=== PATIENT | male | born 1990 | race Caucasian/White ===

== ENCOUNTER 2018-04-18 21:45 | Emergency (ER) | payer OTHER, SELFPAY ==
[2018-04-18 21:48] VITALS: BP 126/70; PULSE 73; RESP 16; TEMP 37.4; O2SAT 100; BMI 20.2
[2018-04-18 21:59] VITALS: RESP 16
--- NOTE | 2018-04-18 22:06 | ED.DCSUM_ITS ---
- ER Visit Summary Date of Service: 04/18/18 Chief Complaint: Left knee pain History of Present Illness: The patient is a 27 M who was at work tonight when he stepped backwards quickly to avoid a falling palate. He hit his right leg against something and fell backwards, twisting his left knee. He now reports increased pain with bending his left knee or with weightbearing. Patient does report a previously problem with either his left or right knee, he does not remember which. He states that he was placed in a brace for a while but does not believe he ever required surgery. Physical Examination: Vital signs unremarkable. Patient sitting upright in bed no acute distress. Lower exam examination is significant for mild tenderness along the medial lateral joint lines of the left knee. There is no joint laxity on testing. Strong distal pulses are noted. No edema. Test Results: Left knee x-ray is read by radiology as a soft tissue swelling with small joint effusion. Probable chip fracture arising from the patella. Emergency Department Course and Treatment: On repeat evaluation patient is standing at bedside. He states he is able to put weight on his leg without difficulty, but does have increased pain along the medial and lateral sides when he tries to bend his knee only. X-ray results were discussed with him. I believe this is likely chronic changes from his prior injury. Arpit wrap will be applied and he will be treated with a course of naproxen. [facility] will follow up with [facility]. Treatment Plan: [] Disposition: Discharge Impression: Left knee sprain This note was generated with [employer] dictation software. It may contain incorrect words, spelling, and punctuation that were not noted in review of the chart prior to signing ED Disposition - Plan for ED Patient: Chief Complaint: Lower Extremity Injury Referrals: Ele Cortes MD [Primary Care Provider] -
--- NOTE | 2018-04-18 22:07 | RAD_ITS ---
STUDY: X-RAY - LEFT KNEE REASON FOR EXAM: Male, 27 years old. Left sided knee pain after fall. TECHNIQUE: 4 view(s) of the knee. COMPARISON: Prior comparison studies are not available for review at this time. FINDINGS: Normal visualized distal femur. Normal visualized proximal tibia and fibula. Normal proximal tibiofibular articulation. Normal medial femorotibial compartment. Normal lateral femorotibial compartment. There is widening of the patellofemoral articulation possibly related to previous or recent patellar dislocation. There is a bone fragment located caudal to the patella that may arise from the patella. There is a soft tissue prominence in the suprapatellar region suggesting a small volume joint effusion. There is soft tissue swelling of the anterior knee. RAD/Knee 4 or More Views IMPRESSION: 1. Soft tissue swelling, joint effusion and probable chip fracture arising from the patella. 2. Possible sequela of patellar dislocation. Electronically Signed: Krista Ragland MD at 23:04 EST , Service support ,
--- NOTE | 2018-04-18 23:17 | ED.DEP ---
ED Disposition - Plan for ED Patient: Disposition: Home or Assisted Living Chief Complaint: Lower Extremity Injury Instructions: ED Sprain Knee Prescriptions: Naproxen [Naprosyn] 500 mg PO BID PRN PRN #20 tablet PRN Reason: Pain Referrals: [facility] [[facility]YSICIANS] - 3-5 Days
[2018-04-18] MEDS: Naproxen 500 MG Tablet PO (23:30)
[2018-04-18 23:32] VITALS: BP 115/62; PULSE 74; RESP 16; O2SAT 99
== END 2018-04-18 23:33 | disposition home or self-care (01) ==
PROVIDERS: Emergency Provider Emergency Medicine; Family Provider Family Medicine; PCP Family Medicine
DX: S83.92XA Sprain of unspecified site of left knee, initial encounter (principal); W22.8XXA Striking against or struck by other objects, initial encounter; Y93.9 Activity, unspecified; Y92.89 Other specified places as the place of occurrence of the external cause; Y99.0 Civilian activity done for income or pay; Z72.0 Tobacco use
CPT/HCPCS: 73564; 99284

== ENCOUNTER 2022-12-20 09:27 | Outpatient (CLI) | payer BC, SELFPAY ==
[2022-12-20 10:06] LABS: Absolute Neutrophil Count 5.5 X10^3/uL (2.0-7.7); Basophil# 0.09 X10^3/uL; Basophil% 0.8 % (0-1); Eosinophil# 0.28 X10^3/uL; Eosinophils% 2.4 % (0-5); Hematocrit 44.9 % (40-54); Hemoglobin 15.4 g/dL (13.0-16.5); Mean Corp Hgb Conc 34.3 g/dL (32-36); Mean Corpuscular Volume 87.5 fL (80-94); Mean Platelet Vol. 10.5 fl (6.2-12.0); Monocyte# 0.85 X10^3/uL; Monocyte% 7.2 % (0-10); NRBC Flagged by Analyzer 0 % (0-5); Neutrophil # 5.51 X10^3/uL (2.7-7.7); Neutrophil % 46.3 % (47-70); POSITIVE DIFFERENTIAL YES; Platelet Count 264 K/mm3 (150-450); RBC Distribution Width CV 11.8 % (11.6-14.6); RBC Distribution Width SD 37.9 fl (35.1-43.9); Red Blood Count 5.13 M/mm3 (4.6-6.2); White Blood Count 11.9 K/mm3 (4.4-11.0)
[2022-12-20 10:16] LABS: Differential Indicated SCAN CRITERIA MET
[2022-12-20 10:55] LABS: AST(SGOT) 17 U/L (15-37); Alanine Aminotransfer ALT/SGPT 24 U/L (16-61); Albumin, Serum 3.6 g/dL (3.2-5.0); Alkaline Phosphatase 105 U/L (45-117); Anion Gap 7 (5-15); BUN 16 mg/dL (7-18); BUN/Creat Ratio 17.4 RATIO (10-20); Chloride 105 mmol/L (98-107); Cholesterol 230 mg/dL (200); Creatinine, Serum 0.92 mg/dL (0.70-1.30); EST Glomerular Filtration Rate 100 mL/min (>60); Est Glom Filt Rate - Afr Amer 121 mL/min (>60); Globulin 3.7 g/dL (2.2-4.2); Glucose 88 mg/dL (74-106); High Density Lipoprotein 30 mg/dL; Potassium 3.7 mmol/L (3.5-5.1); Protein, Total 7.3 g/dL (6.4-8.2); Rheumatoid Factor < 10.0 IU/mL (<15); Sodium Level 138 mmol/L (136-145); Thyroid Stim Hormone (TSH) 1.96 uIU/mL (0.358-3.74); Triglycerides 353 mg/dL; Very Low Density Lipoprotein 71 mg/dL (5-40)
== END 2022-12-20 23:59 | disposition home or self-care (01) ==
LOC: MFPLAB 09:30
PROVIDERS: PCP Family Medicine; Visit Provider Family Medicine
DX: Z00.00 Encounter for general adult medical examination without abnormal findings (principal); Z13.1 Encounter for screening for diabetes mellitus; Z82.61 Family history of arthritis
CPT/HCPCS: 36415; 80053; 80061; 84443; 85025; 86431

== ENCOUNTER → 2023-01-15 | Outpatient (CLI) | payer BC, SELFPAY ==
--- NOTE | 2023-01-15 14:50 | ART_ITS ---
Reason For Study: RLE Pain Procedure A bilateral lower extremity continuous wave Doppler with analog waveform analysis and ankle brachial indexes. Left Segmental Pressures Left brachial= 114mmHg. Left posterior tibial artery = 141mmHg. Left dorsalis pedis artery = 136mmHg. Left digit = 105 mmHg. The left posterior tibial artery waveforms are triphasic. The left dorsalis pedis waveforms are triphasic. Right Segmental Pressures Right brachial= 120mmHg. Right posterior tibial artery = 100mmHg. Right dorsalis pedis artery = 93mmHg. Right digit = 89 mmHg. The right posterior tibial artery waveforms are biphasic. The right dorsalis pedis waveforms are biphasic. Indices The right ankle brachial index by the posterior tibial artery is 0.83. The right ankle brachial index by the dorsalis pedis is 0.78. The right digital-brachial index is 0.74. The left ankle brachial index by the posterior tibial artery is 1.18. The left ankle brachial index by the dorsalis pedis is 1.13. The left digital-brachial index is 0.88. VL/Ankle Brachial Index Interpretation Summary Right JOSEF 0.83, moderate arterial insufficiency. Doppler/PVR waveforms of the r ight leg moderately diminished at rest. Left JOSEF 1.18, normal. TBI and Doppler/PVR waveforms of the left leg normal at rest. Ordering Physician: Souleymane Hernandez Referring Physician: Souleymane Hernandez Performed By: Duane Nelson, RVT
== END | disposition home or self-care (01) ==
LOC: CVS 14:50
PROVIDERS: PCP Family Medicine; Referring Provider Family Medicine; Visit Provider Family Medicine
DX: M79.606 Pain in leg, unspecified (principal); I77.1 Stricture of artery
CPT/HCPCS: 93922